=== PATIENT | female | born 1985 | race Caucasian/White ===

== ENCOUNTER 2024-03-28 21:43 | Emergency (ER) | payer MEDICAID ==
[~2024-03-28] VITALS: Ht 165.1 cm; Wt 71.0 kg
[2024-03-28 21:51] VITALS: O2SAT 99
[2024-03-28 21:57] VITALS: BP 125/68; PULSE 68; RESP 18; TEMP 98.7; O2SAT 100
[2024-03-28 23:45] LABS: BASOPHILS % 0.3 % (0.0-2.0); EOSINOPHILS % 1.5 % (0.0-5.0); HEMATOCRIT. 41.8 % (36.0-48.0); HEMOGLOBIN. 14.1 g/dL (12.0-16.0); MEAN CORPUSCULAR HEMOGLOBIN 32.5 pg (28.0-32.0); MEAN CORPUSCULAR HGB CONC 33.7 g/dL (31.0-37.0); MEAN CORPUSCULAR VOLUME 96.4 fL (81.0-99.0); MEAN PLATELET VOLUME 7.7 fl (7.4-10.4); MONOCYTES % 5.8 % (2.0-8.0); NEUTROPHILS % 62.4 % (40.0-76.0); PLATELET 367 x1000/uL (130-400); RED BLOOD CELL COUNT 4.33 mill/uL (4.2-5.4); WHITE BLOOD COUNT 9.7 x1000/uL (4.5-11.0)
[2024-03-28 23:52] LABS: CHLORIDE 105 mEq/L (98-107); POTASSIUM 4.1 mEq/L (3.5-5.1); SODIUM 140 mEq/L (136-145)
[2024-03-28 23:54] LABS: CALCIUM 9.6 mg/dL (8.7-10.4); CARBON DIOXIDE 28 mEq/L (21-32)
[2024-03-28 23:59] LABS: CREATININE 0.8 mg/dL (0.6-1.0); GLUCOSE 95 mg/dL (70-105); UREA NITROGEN BLOOD 11 mg/dL (9-23)
[2024-03-29 00:01] LABS: ALANINE AMINOTRANSFERASE 9 IU/L (10-49); ALBUMIN 4.6 g/dL (3.2-4.8); ASPARTATE AMINOTRANSFERASE 16 IU/L (<34); BILIRUBIN DIRECT 0.2 mg/dL (<=3.0); BILIRUBIN TOTAL 0.7 mg/dL (0.1-1.0); PROTEIN TOTAL 7.4 g/dL (6.0-8.3)
[2024-03-29] MEDS: ONDANSETRON 4MG ODT PO ONE (00:45)
[2024-03-29] MEDS: FAMOTIDINE 20MG TABLET PO ONE (00:45)
[2024-03-29] MEDS: MAGNESIUM/ALUMINUM HYDROXIDE/SIMETHICONE 30ML UDC PO ONE (00:45)
[2024-03-29] MEDS: ONDANSETRON 4MG ODT PO NR (01:43)
[2024-03-29] MEDS: FAMOTIDINE 20MG TABLET PO NR (01:51)
[2024-03-29] MEDS: MAGNESIUM/ALUMINUM HYDROXIDE/SIMETHICONE 30ML UDC PO NR (01:51)
[2024-03-29] MEDS ORDERED: MAG-55 MT (02:03)
[2024-03-29] MEDS ORDERED: FAMO-134 MT (02:03)
== END 2024-03-29 02:00 | disposition home or self-care (01) ==
LOC: ER 21:43
DX: K29.70 Gastritis, unspecified, without bleeding (principal)
CPT/HCPCS: 99284; 80076; 80048; 83690; 85025; 36415; Q0162